=== PATIENT | male | born 2000 | race Two or more races ===

== ENCOUNTER 2023-12-03 06:04 | Emergency (ER) | payer BC, MEDICAID ==
[~2023-12-03] VITALS: Ht 167.6 cm; Wt 95.3 kg
[2023-12-03] MEDS ORDERED: DICYCLOMINE HCL INJ 20 MG/2 ML AMPUL IM ONE (06:22)
[2023-12-03] MEDS ORDERED: ONDANSETRON HCL/PF 4 MG/2 ML VIAL ONE (06:23)
[2023-12-03] MEDS ORDERED: KETOROLAC TROMETHAMINE 15 MG/ML VIAL ONE (06:23)
[2023-12-03] MEDS: DICYCLOMINE HCL INJ 20 MG/2 ML AMPUL IM ONE (06:43)
[2023-12-03] MEDS: ONDANSETRON HCL/PF 4 MG/2 ML VIAL IVP ONE (06:43)
[2023-12-03] MEDS: KETOROLAC TROMETHAMINE 15 MG/ML VIAL IV ONE (06:43)
[2023-12-03] MEDS: IV NS 0.9% 1,000 ML BAG IV ONE (06:43)
[2023-12-03 06:57] LABS: BASOPHILS % (AUTO) 0.3 % (0.0-2.0); EOSINOPHILS # (AUTO) 0.3 K/uL (0.0-0.7); EOSINOPHILS % (AUTO) 4.7 % (0.0-6.0); HEMATOCRIT 44 % (39-51); HEMOGLOBIN 14.8 g/dL (13.5-17.5); LYMPHOCYTES # (AUTO) 1.8 K/uL (0.8-4.8); LYMPHOCYTES % (AUTO) 25.8 % (20.0-44.0); MEAN CORPUSCULAR HEMOGLOBIN 26 PG (26.0-33.0); MEAN CORPUSCULAR HGB CONC 33 g/dl (31.0-36.0); MEAN CORPUSCULAR VOLUME 78 fL (80-96); MONOCYTES # (AUTO) 0.6 K/uL (0.1-1.30); MONOCYTES % (AUTO) 8.5 % (2.0-12.0); NEUTROPHILS # (AUTO) 4.1 K/uL (1.8-8.9); NEUTROPHILS % (AUTO) 60.7 % (43.0-81.0); PLATELET COUNT (AUTO) 181 K/uL (150-450); RED CELL DISTRIBUTION WIDTH 15.1 % (11.5-15.0); WHITE BLOOD COUNT (AUTO) 6.8 K/uL (4.3-11.0)
[2023-12-03 07:08] LABS: CALCIUM, SERUM 9.3 mg/dL (8.5-10.1); CREATININE 0.6 mg/dL (0.6-1.3); POTASSIUM 3.7 mmol/L (3.5-5.1)
[2023-12-03 07:13] LABS: ALBUMIN 3.5 g/dL (3.4-5.0); BILIRUBIN,DIRECT 0.1 mg/dL (0.0-0.2); BILIRUBIN,TOTAL 0.5 mg/dL (0.2-1.0); TOTAL PROTEIN, SERUM 7.4 g/dL (6.4-8.2)
[2023-12-03] MEDS ORDERED: DICY10CA37 PO (07:37)
[2023-12-03] MEDS ORDERED: ONDA4TAB11 PO (07:37)
[2023-12-03 07:55] VITALS: BP 126/81; TEMP 98.5; O2SAT 99
== END 2023-12-03 07:56 | disposition home or self-care (01) ==
LOC: ER 06:18
DX: R11.2 Nausea with vomiting, unspecified (principal); R10.84 Generalized abdominal pain; R19.7 Diarrhea, unspecified
CPT/HCPCS: 99284; 96374; 96361; 96375; 85025; 80048; 83690; 80076; 36415; 96372; J2405; J7030; J0500; J1885